=== PATIENT | male | born 1975 | race Two or more races ===

== ENCOUNTER 2023-06-14 05:25 | Day surgery (SDC) | payer OTHER ==
[~2023-06-14 05:25] MED LIST: ELIQUIS5 MG PO
[2023-06-14] MEDS ORDERED: CIPROFLOXACIN2.5 ML OTIC (14:25)
[2023-06-14] MEDS ORDERED: CEPHALEXIN500 M1 PO (14:26)
== END 2023-06-14 20:00 | disposition home or self-care (01) ==
LOC: CIR.AMB 05:25
PROVIDERS: ATTEND Otolaryngology Otology & Neurotology
DX: H71.01 Cholesteatoma of attic, right ear (principal); H72.11 Attic perforation of tympanic membrane, right ear; H90.11 Conductive hearing loss, unilateral, right ear, with unrestricted hearing on the contralateral side; Z20.822 Contact with and (suspected) exposure to COVID-19